=== PATIENT | female | born 1965 | race Caucasian/White ===

== ENCOUNTER 2017-11-26 19:07 | Emergency (ER) | payer BC ==
--- NOTE | 2017-11-26 21:02 | EDM.PDOC ---
ED HPI GENERAL MEDICAL PROBLEM - General Chief Complaint: Neuro Symptoms/Deficits Stated Complaint: NUMBNESS Time Seen by Provider: 11/26/17 20:41 Source of Information: Reports: Patient, Family History Limitations: Reports: No Limitations - History of Present Illness INITIAL COMMENTS - FREE TEXT/NARRATIVE: HISTORY AND PHYSICAL: History of present illness: 52-year-old female presenting to emergency department complaining of tingling sensation in extremities and generalized weakness with past medical history of rheumatoid arthritis, opioid dependence, fibromyalgia, and multiple back surgeries. As per patient she is presenting to the emergency department secondary to generalized tingling in her extremities. She also states for the past week she' s been dropping things more often and feels that is getting worse. She is not steady on her feet and is tired all the time as well as sleeping. She does admit to taking Flexeril recently as well as oxycodone. She does have a history of opioid dependence after treatment for her back surgeries. States that she took an oxycodone after she found it. Family is concerned that she has been taking more of the Flexeril and oxycodone recently and that is the cause of her symptoms. She and family deny any history of TIA/stroke, facial drooping, or other signs of stroke. Patient also admits to having hallucination and vivid dreams in which someone is trying to kill her. These have been increasing. Patient does see Dr. Pemberton as her primary care provider. She states that she has also had a sore throat but denies any fever, nausea, vomiting, diarrhea, or other signs of systemic infection. Currently denies any chest pain, palpitations , shortness of breath, or syncopal episodes. Patient is calm and quiet somewhat slow to answer questions. No other significant finding on exam. CBC unremarkable CMP revealed mild hyponatremia 1:30 as well as mild hypokalemia at 3.2. CT the head unremarkable as well as urinalysis and rapid strep. Review of systems: As per history of present illness and below otherwise all systems reviewed and negative. Past medical history: As per history of present illness and as reviewed below otherwise noncontributory. Surgical history: As per history of present illness and as reviewed below otherwise noncontributory. Social history: No reported history of drug or alcohol abuse. Family history: As per history of present illness and as reviewed below otherwise noncontributory. Physical exam: HEENT: Atraumatic, normocephalic, pupils reactive, negative for conjunctival pallor or scleral icterus, mucous membranes moist, throat clear, neck supple, nontender, trachea midline. Lungs: Clear to auscultation, breath sounds equal bilaterally, chest nontender. Heart: S1S2, regular, negative for clicks, rubs, or JVD. Abdomen: Soft, nondistended, nontender. Negative for masses or hepatosplenomegaly. Negative for costovertebral tenderness. Pelvis: Stable nontender. Genitourinary: Deferred. Rectal: Deferred. Extremities: Atraumatic, negative for cords or calf pain. Neurovascular unremarkable. Neuro: Awake, alert, oriented. Cranial nerves II through XII unremarkable. Cerebellum unremarkable. Motor and sensory unremarkable throughout. Exam nonfocal. Diagnostics: CBC, CMP, UA/UC, rapid strep, CT head, EKG Therapeutics: 1 L normal saline, 40 mEq KCl Impression: Drug-induced paresthesias and weakness Opioid dependence Hyponatremia Hypokalemia Plan: As above patient did have mild hyponatremia and hypokalemia. I did talk to Dr. Kemp, hospitalist, and discussed patient's symptoms. We both agreed that she may have some tingling but 2 weeks of continued lethargy most likely related to the mild hyponatremia. Secondary to patient's history most likely related to medication ingestion with Flexeril and opioid. Patient's urine was positive for opioids. Discussed this with patient and her . They're in understanding. Discharged in good condition with instructions to follow-up with Dr. Pemberton tomorrow. They should return to emergency department if any new or worsening symptoms. Definitive disposition and diagnosis as appropriate pending reevaluation and review of above. Throat Pain Score (Numeric/FACES): 9 - Related Data Allergies Allergy/AdvReac Type Severity Reaction Status Date / Time cyclobenzaprine Allergy Weakness Verified 11/26/17 19:48 Home Meds: Home Meds Diclofenac Sodium [Voltaren] 75 mg PO BIDM #15 tab.cr 02/11/14 [Rx] oxyCODONE HCl/Acetaminophen [oxyCODONE-Acetaminophen 5-325] 1 tab PO ASDIRECTED 02/11/14 [History] Acyclovir 800 mg PO DAILY PRN 11/26/17 [History] Calcium Carb & Citrate/Vit D3 [Calcium + D3 ER Tablet] 1 tab PO DAILY 11/26/17 [ History] Celecoxib [CeleBREX] 200 mg PO DAILY PRN 11/26/17 [History] Cholecalciferol (Vitamin D3) [Vitamin D3] 1 tab PO DAILY 11/26/17 [History] Dexlansoprazole [Dexilant] 60 mg PO DAILY 11/26/17 [History] Famotidine [Pepcid] 20 mg PO DAILY 11/26/17 [History] Fexofenadine [Mary] 180 mg PO DAILY 11/26/17 [History] Folic Acid 5 mg PO DAILY 11/26/17 [History] Hydroxychloroquine Sulfate [Plaquenil] 200 mg PO BID 11/26/17 [History] Losartan [Cozaar] 50 mg PO DAILY 11/26/17 [History] Methotrexate 8 tab PO WEEKLY 11/26/17 [History] Potassium Chloride [Klor-Con] 20 meq PO DAILY 11/26/17 [History] Pregabalin [Lyrica] 75 mg PO ACLUNCH 11/26/17 [History] Pregabalin [Lyrica] 75 mg PO WITHBREAKFAST 11/26/17 [History] Pregabalin [Lyrica] 150 mg PO BEDTIME 11/26/17 [History] Thiamine [Vitamin B-1] 100 mg PO DAILY 11/26/17 [History] Venlafaxine [Effexor XR] 1 tab PO BID 11/26/17 [History] ZOLMitriptan [Zomig] 5 mg PO DAILY PRN 11/26/17 [History] traZODone HCl [Trazodone HCl] 1 - 2 tab PO BEDTIME PRN 11/26/17 [History] Past Medical History Cardiovascular History: Reports: Hypertension Musculoskeletal History: Reports: RA Neurological History: Reports: Migraines Psychiatric History: Reports: Depression Social & Family History - Family History Family Medical History: Noncontributory - Tobacco Use Smoking Status *Q: Current Every Day Smoker Years of Tobacco use: 32 Packs/Tins Daily: 1 - Recreational Drug Use Recreational Drug Use: Yes Recreational Drug Type: Reports: Marijuana/Hashish ED ROS GENERAL - Review of Systems Review Of Systems: ROS reveals no pertinent complaints other than HPI. ED EXAM, GENERAL - Physical Exam Exam: See Below Course - Vital Signs Last Recorded V/S: Last Vital Signs Temp 98.6 F 11/26/17 22:52 Pulse 70 11/26/17 22:52 Resp 15 11/26/17 22:52 BP 120/69 11/26/17 22:52 Pulse Ox 96 11/26/17 22:52 - Orders/Labs/Meds Orders: Active Orders 24 hr Category Date Time Status EKG Documentation Completion [RC] STAT Care 11/26/17 21:36 Active Head wo Cont [CT] Stat Exams 11/26/17 20:54 Taken CULTURE STREP A CONFIRMATION [RM] Stat Lab 11/26/17 21:49 Results CULTURE URINE [] Stat Lab 11/26/17 20:20 Received STREP SCRN A RAPID W CULT CONF [] Stat Lab 11/26/17 21:49 Results Labs: Laboratory Tests 11/26/17 11/26/17 11/26/17 Range/Units 08:26 08:26 20:20 WBC 6.37 (4.0-11.0) K/uL RBC 3.51 L (4.30-5.90) M/uL Hgb 11.2 L (12.0-16.0) g/dL Hct 32.0 L (36.0-46.0) % MCV 91.2 (80.0-98.0) fL MCH 31.9 (27.0-32.0) pg MCHC 35.0 (31.0-37.0) g/dL RDW Std Deviation 46.0 (28.0-62.0) fl RDW Coeff of Michelle 14 (11.0-15.0) % Plt Count 300 (150-400) K/uL MPV 10.70 (7.40-12.00) fL Neut % (Auto) 76.5 (48.0-80.0) % Lymph % (Auto) 21.4 (16.0-40.0) % Dorado % (Auto) 0.3 (0.0-15.0) % Eos % (Auto) 1.6 (0.0-7.0) % Baso % (Auto) 0.2 (0.0-1.5) % Neut # (Auto) 4.9 (1.4-5.7) K/uL Lymph # (Auto) 1.4 (0.6-2.4) K/uL Dorado # (Auto) 0.0 (0.0-0.8) K/uL Eos # (Auto) 0.1 (0.0-0.7) K/uL Baso # (Auto) 0.0 (0.0-0.1) K/uL Nucleated RBC % 0.0 /100WBC Nucleated RBCs # 0 K/uL Sodium 130 L (136-145) mmol/L Potassium 3.2 L (3.5-5.1) mmol/L Chloride 92 L (98-107) mmol/L Carbon Dioxide 21.1 (21.0-32.0) mmol/L BUN 94 H (7.0-18.0) mg/dL Creatinine 6.2 H (0.6-1.0) mg/dL Est Cr Clr Drug Dosing 9.33 mL/min Estimated GFR (MDRD) 7.0 ml/min Glucose 100 (74-106) mg/dL Calcium 8.6 (8.5-10.1) mg/dL Total Bilirubin 0.3 (0.2-1.0) mg/dL AST 42 H (15-37) IU/L ALT 24 (14-63) IU/L Alkaline Phosphatase 126 H (46-116) U/L Total Protein 7.8 (6.4-8.2) g/dL Albumin 3.8 (3.4-5.0) g/dL Globulin 4.0 H (2.0-3.5) g/dL Albumin/Globulin Ratio 1.0 L (1.3-2.8) Urine Color YELLOW Urine Appearance CLEAR Urine pH 5.5 (5.0-8.0) Ur Specific Makanda 1.015 (1.001-1.035) Urine Protein NEGATIVE (NEGATIVE) mg/dL Urine Glucose (UA) NEGATIVE (NEGATIVE) mg/dL Urine Ketones NEGATIVE (NEGATIVE) mg/dL Urine Occult Blood NEGATIVE (NEGATIVE) Urine Nitrite NEGATIVE (NEGATIVE) Urine Bilirubin NEGATIVE (NEGATIVE) Urine Urobilinogen 0.2 (<2.0) EU/dL Ur Leukocyte Esterase NEGATIVE (NEGATIVE) Urine RBC 0-1 (0-2/HPF) Urine WBC 0-2 (0-5/HPF) Ur Epithelial Cells MODERATE (NONE-FEW) Urine Bacteria RARE (NEGATIVE) Urine Opiates Screen (NEGATIVE) Ur Oxycodone Screen (NEGATIVE) Urine Methadone Screen (NEGATIVE) Ur Barbiturates Screen (NEGATIVE) Ur Phencyclidine Scrn (NEGATIVE) Ur Amphetamine Screen (NEGATIVE) U Methamphetamines Scrn (NEGATIVE) U Benzodiazepines Scrn (NEGATIVE) U Cocaine Metab Screen (NEGATIVE) U Marijuana (THC) Screen (NEGATIVE) 11/26/17 Range/Units 20:20 WBC (4.0-11.0) K/uL RBC (4.30-5.90) M/uL Hgb (12.0-16.0) g/dL Hct (36.0-46.0) % MCV (80.0-98.0) fL MCH (27.0-32.0) pg MCHC (31.0-37.0) g/dL RDW Std Deviation (28.0-62.0) fl RDW Coeff of Michelle (11.0-15.0) % Plt Count (150-400) K/uL MPV (7.40-12.00) fL Neut % (Auto) (48.0-80.0) % Lymph % (Auto) (16.0-40.0) % Dorado % (Auto) (0.0-15.0) % Eos % (Auto) (0.0-7.0) % Baso % (Auto) (0.0-1.5) % Neut # (Auto) (1.4-5.7) K/uL Lymph # (Auto) (0.6-2.4) K/uL Dorado # (Auto) (0.0-0.8) K/uL Eos # (Auto) (0.0-0.7) K/uL Baso # (Auto) (0.0-0.1) K/uL Nucleated RBC % /100WBC Nucleated RBCs # K/uL Sodium (136-145) mmol/L Potassium (3.5-5.1) mmol/L Chloride (98-107) mmol/L Carbon Dioxide (21.0-32.0) mmol/L BUN (7.0-18.0) mg/dL Creatinine (0.6-1.0) mg/dL Est Cr Clr Drug Dosing mL/min Estimated GFR (MDRD) ml/min Glucose (74-106) mg/dL Calcium (8.5-10.1) mg/dL Total Bilirubin (0.2-1.0) mg/dL AST (15-37) IU/L ALT (14-63) IU/L Alkaline Phosphatase (46-116) U/L Total Protein (6.4-8.2) g/dL Albumin (3.4-5.0) g/dL Globulin (2.0-3.5) g/dL Albumin/Globulin Ratio (1.3-2.8) Urine Color Urine Appearance Urine pH (5.0-8.0) Ur Specific Makanda (1.001-1.035) Urine Protein (NEGATIVE) mg/dL Urine Glucose (UA) (NEGATIVE) mg/dL Urine Ketones (NEGATIVE) mg/dL Urine Occult Blood (NEGATIVE) Urine Nitrite (NEGATIVE) Urine Bilirubin (NEGATIVE) Urine Urobilinogen (<2.0) EU/dL Ur Leukocyte Esterase (NEGATIVE) Urine RBC (0-2/HPF) Urine WBC (0-5/HPF) Ur Epithelial Cells (NONE-FEW) Urine Bacteria (NEGATIVE) Urine Opiates Screen POSITIVE (NEGATIVE) Ur Oxycodone Screen POSITIVE (NEGATIVE) Urine Methadone Screen NEGATIVE (NEGATIVE) Ur Barbiturates Screen NEGATIVE (NEGATIVE) Ur Phencyclidine Scrn NEGATIVE (NEGATIVE) Ur Amphetamine Screen NEGATIVE (NEGATIVE) U Methamphetamines Scrn NEGATIVE (NEGATIVE) U Benzodiazepines Scrn NEGATIVE (NEGATIVE) U Cocaine Metab Screen NEGATIVE (NEGATIVE) U Marijuana (THC) Screen NEGATIVE (NEGATIVE) Meds: Medications Discontinued Medications Generic Name Dose Route Start Last Admin Trade Name Freq PRN Reason Stop Dose Admin Sodium Chloride 1,000 mls @ 999 mls/hr 11/26/17 21:37 11/26/17 21:47 Normal Saline IV 11/26/17 22:37 999 mls/hr STAT ONE Administration Potassium Chloride 40 meq 11/26/17 21:37 11/26/17 21:47 Klor-Con M20 PO 11/26/17 21:38 40 meq ONETIME ONE Administration Departure - Departure Time of Disposition: 23:11 Disposition: Home, Self-Care 01 Condition: Good Clinical Impression: Hyponatremia, Hypokalemia, Lethargy, Acute hypoactive opioid intoxication delirium - Discharge Information Referrals: Chris Pemberton MD [Primary Care Provider] - Forms: ED Department Discharge Additional Instructions: My general discharge The following information is given to patients seen in the emergency department who are being discharged to home. This information is to outline your options for follow-up care. We provide all patients seen in our emergency department with a follow-up referral. The need for follow-up, as well as the timing and circumstances, are variable depending upon the specifics of your emergency department visit. If you don't have a primary care physician on staff, we will provide you with a referral. We always advise you to contact your personal physician following an emergency department visit to inform them of the circumstance of the visit and for follow-up with them and/or the need for any referrals to a consulting specialist. The emergency department will also refer you to a specialist when appropriate. This referral assures that you have the opportunity for follow-up care with a specialist. All of these measure are taken in an effort to provide you with optimal care, which includes your follow-up. Under all circumstances we always encourage you to contact your private physician who remains a resource for coordinating your care. When calling for follow-up care, please make the office aware that this follow-up is from your recent emergency room visit. If for any reason you are refused follow-up, please contact the [facility] Emergency Department at and asked to speak to the emergency department charge nurse. [address] [address] Please follow-up with Dr. Pemberton as we discussed. Be sure to call his office tomorrow and let them know that you were seen in the emergency department and they wish for you to be seen as possible. Refrain from any muscle relaxer or opioids. Return to emergency department if any new or worsening symptoms. - My Orders Last 24 Hours: My Active Orders 11/26/17 20:20 CULTURE URINE [RM] Stat 11/26/17 20:54 Head wo Cont [CT] Stat 11/26/17 21:36 EKG Documentation Completion [RC] STAT 11/26/17 21:49 CULTURE STREP A CONFIRMATION [RM] Stat STREP SCRN A RAPID W CULT CONF [RM] Stat - Assessment/Plan Last 24 Hours: My Active Orders 11/26/17 20:20 CULTURE URINE [RM] Stat 11/26/17 20:54 Head wo Cont [CT] Stat 11/26/17 21:36 EKG Documentation Completion [RC] STAT 11/26/17 21:49 CULTURE STREP A CONFIRMATION [RM] Stat STREP SCRN A RAPID W CULT CONF [RM] Stat
[2017-11-26] MEDS ORDERED: Sodium Chloride 0.9% 1,000 ML IV ONE (21:37)
[2017-11-26] MEDS ORDERED: Potassium Chloride 20 MEQ Tab.ER PO ONE (21:37)
--- NOTE | 2017-11-27 09:39 | CT ---
EXAM DATE: 11/26/17 PATIENT'S AGE: 52 Patient: [place] MEHTA Facility: [place], [place] Site . Site : [id number] Study: CT Head [id number] 9:21:51 PM Ordering Physician: Geoffrey Damico Final Report: INDICATION: Pain with neurological deficits TECHNIQUE: CT head without contrast. COMPARISON: None FINDINGS: CSF spaces: Within normal limits for age. Brain parenchyma: The elam-white differentiation is normal. No sign of mass, hemorrhage, or midline shift. Skull base and calvarium: The visualized paranasal sinuses and mastoid air cells demonstrate no acute or significant findings. The visualized orbits are grossly unremarkable. No skull fractures. IMPRESSION: Unremarkable noncontrast head CT. Dictated by Harman Sanchez MD @ 11/26/2017 9:33:07 PM Please note that all CT scans at this facility use dose modulation, iterative reconstruction, and/or weight-based dosing when appropriate to reduce radiation dose to as low as reasonably achievable. Dictated by: Harman Sanchez MD @ 11/26/2017 21:33:13 (Electronic Signature) Report Signed by Proxy. [facility] [email or web address]
== END 2017-11-26 23:22 | disposition home or self-care (01) ==
LOC: MW.ED 19:07
DX: R20.2 Paresthesia of skin (principal); T40.2X5A Adverse effect of other opioids, initial encounter; F11.221 Opioid dependence with intoxication delirium; E87.1 Hypo-osmolality and hyponatremia; E87.6 Hypokalemia; R53.83 Other fatigue; I10 Essential (primary) hypertension; F32.9 Major depressive disorder, single episode, unspecified; F17.210 Nicotine dependence, cigarettes, uncomplicated; Z79.899 Other long term (current) drug therapy; Z88.8 Allergy status to other drugs, medicaments and biological substances
CPT/HCPCS: 36415; 70450; 80053; 80305; 81001; 85025; 87081; 87086; 87880; 93005; 96360; 99285; A9270; J7040; 99283

== ENCOUNTER 2020-05-11 09:04 | Emergency (ER) | payer BC ==
[2020-05-11] MEDS ORDERED: Sodium Chloride 0.9% 1,000 ML IV ONE (09:15)
[2020-05-11] MEDS ORDERED: Morphine 4 MG/ML Syringe IVPUSH ONE (09:15)
--- NOTE | 2020-05-11 09:20 | EDM.PDOC ---
ED HPI GENERAL MEDICAL PROBLEM - General Chief Complaint: Gastrointestinal Problem Stated Complaint: EMS Time Seen by Provider: 05/11/20 09:15 Source of Information: Reports: Patient History Limitations: Reports: No Limitations, Uncooperative - History of Present Illness INITIAL COMMENTS - FREE TEXT/NARRATIVE: Patient is a 54-year-old female who was brought in by EMS for vomiting and abdominal pain. Patient is unsure when this started but states that since this morning she has been having profuse vomiting has some pain in epigastric area. Patient does not remember any events such as eating new foods or travels the cause of symptoms. Patient has some antibiotics in her medication bag but states she is not sure if she was taken any medications for antibiotics. Patient denies any fever chills headaches or other complaints. abd Pain Score (Numeric/FACES): 10 - Related Data Allergies Allergy/AdvReac Type Severity Reaction Status Date / Time cyclobenzaprine Allergy Weakness Verified 11/26/17 19:48 Home Meds: Home Meds Diclofenac Sodium [Voltaren] 75 mg PO BIDM #15 tab.cr 02/11/14 [Rx] oxyCODONE HCl/Acetaminophen [oxyCODONE-Acetaminophen 5-325] 1 tab PO ASDIRECTED 02/11/14 [History] Acyclovir 800 mg PO DAILY PRN 11/26/17 [History] Calcium Carb, Citrate/Vit D3 [Calcium + D3 ER Tablet] 1 tab PO DAILY 11/26/17 [History] Celecoxib [CeleBREX] 200 mg PO DAILY PRN 11/26/17 [History] Cholecalciferol (Vitamin D3) [Vitamin D3] 1 tab PO DAILY 11/26/17 [History] Dexlansoprazole [Dexilant] 60 mg PO DAILY 11/26/17 [History] Famotidine [Pepcid] 20 mg PO DAILY 11/26/17 [History] Fexofenadine [Mary] 180 mg PO DAILY 11/26/17 [History] Folic Acid 5 mg PO DAILY 11/26/17 [History] Hydroxychloroquine Sulfate [Plaquenil] 200 mg PO BID 11/26/17 [History] Losartan [Cozaar] 50 mg PO DAILY 11/26/17 [History] Methotrexate 8 tab PO WEEKLY 11/26/17 [History] Potassium Chloride [Klor-Con] 20 meq PO DAILY 11/26/17 [History] Pregabalin [Lyrica] 75 mg PO ACLUNCH 11/26/17 [History] Pregabalin [Lyrica] 75 mg PO WITHBREAKFAST 11/26/17 [History] Pregabalin [Lyrica] 150 mg PO BEDTIME 11/26/17 [History] Thiamine [Vitamin B-1] 100 mg PO DAILY 11/26/17 [History] Venlafaxine [Effexor XR] 1 tab PO BID 11/26/17 [History] ZOLMitriptan [Zomig] 5 mg PO DAILY PRN 11/26/17 [History] traZODone HCl [Trazodone HCl] 1 - 2 tab PO BEDTIME PRN 11/26/17 [History] Ondansetron [Zofran ODT] 4 mg PO Q6H PRN 5 Days #20 tab.dis 05/11/20 [Rx] Past Medical History Cardiovascular History: Reports: Hypertension Musculoskeletal History: Reports: RA Neurological History: Reports: Migraines Psychiatric History: Reports: Depression Social & Family History - Family History Family Medical History: No Pertinent Family History ED ROS GENERAL - Review of Systems Review Of Systems: See Below Constitutional: Reports: No Symptoms HEENT: Reports: No Symptoms Respiratory: Reports: No Symptoms Cardiovascular: Reports: No Symptoms Endocrine: Reports: No Symptoms GI/Abdominal: Reports: Abdominal Pain, Vomiting : Reports: No Symptoms Musculoskeletal: Reports: No Symptoms Skin: Reports: No Symptoms Neurological: Reports: No Symptoms Psychiatric: Reports: No Symptoms Hematologic/Lymphatic: Reports: No Symptoms Immunologic: Reports: No Symptoms ED EXAM, GI/ABD - Physical Exam Exam: See Below Exam Limited By: No Limitations General Appearance: Alert Respiratory/Chest: No Respiratory Distress, Lungs Clear Cardiovascular: Normal Peripheral Pulses, Regular Rate, Rhythm GI/Abdominal Exam: Normal Bowel Sounds, Soft, Non-Tender Extremities: Normal Inspection, Normal Range of Motion Neurological: Alert, Oriented, Normal Cognition, Normal Gait #1 Interpretation EKG Date: 05/11/20 Time: 09:05 Rhythm: NSR Rate (Beats/Min): 59 ST-T: Normal Course - Vital Signs Last Recorded V/S: Last Vital Signs Temp 95.0 F L 05/11/20 09:04 Pulse 78 05/11/20 13:30 Resp 18 05/11/20 13:30 BP 116/98 H 05/11/20 13:30 Pulse Ox 97 05/11/20 13:30 - Orders/Labs/Meds Orders: Active Orders 24 hr Category Date Time Status C DIFFICILE AG/TOXIN W/REFLEX [RM] Stat Lab 05/11/20 12:22 Ordered UA W/SENDY RFLX IF INDICATED [URIN] Stat Lab 05/11/20 09:16 Ordered Labs: Laboratory Tests 05/11/20 05/11/20 05/11/20 Range/Units 09:24 09:24 09:24 WBC 10.94 (4.0-11.0) K/uL RBC 3.95 L (4.30-5.90) M/uL Hgb 13.1 (12.0-16.0) g/dL Hct 37.9 (36.0-46.0) % MCV 95.9 (80.0-98.0) fL MCH 33.2 H (27.0-32.0) pg MCHC 34.6 (31.0-37.0) g/dL RDW Std Deviation 47.4 (28.0-62.0) fl RDW Coeff of Michelle 14 (11.0-15.0) % Plt Count 368 (150-400) K/uL MPV 10.80 (7.40-12.00) fL Neut % (Auto) 69.9 (48.0-80.0) % Lymph % (Auto) 24.6 (16.0-40.0) % [place] % (Auto) 4.8 (0.0-15.0) % Eos % (Auto) 0.5 (0.0-7.0) % Baso % (Auto) 0.2 (0.0-1.5) % Neut # (Auto) 7.7 H (1.4-5.7) K/uL Lymph # (Auto) 2.7 H (0.6-2.4) K/uL [place] # (Auto) 0.5 (0.0-0.8) K/uL Eos # (Auto) 0.1 (0.0-0.7) K/uL Baso # (Auto) 0.0 (0.0-0.1) K/uL Nucleated RBC % 0.0 /100WBC Nucleated RBCs # 0 K/uL Lactate 2.1 H* (0.20-2.00) mmol/L Sodium 141 (136-145) mmol/L Potassium 3.1 L (3.5-5.1) mmol/L Chloride 104 (98-107) mmol/L Carbon Dioxide 21.3 (21.0-32.0) mmol/L BUN 23 H (7.0-18.0) mg/dL Creatinine 0.9 (0.6-1.0) mg/dL Est Cr Clr Drug Dosing TNP Estimated GFR (MDRD) > 60.0 ml/min Glucose 171 H (74-106) mg/dL Calcium 9.5 (8.5-10.1) mg/dL Phosphorus 0.9 L (2.6-4.7) mg/dL Magnesium 1.9 (1.8-2.4) mg/dL Total Bilirubin 0.4 (0.2-1.0) mg/dL AST 25 (15-37) IU/L ALT 21 (14-63) IU/L Alkaline Phosphatase 99 (46-116) U/L Creatine Kinase 100 (26-308) U/L Troponin I < 0.050 (0.000-0.056) ng/mL Total Protein 8.0 (6.4-8.2) g/dL Albumin 3.6 (3.4-5.0) g/dL Globulin 4.4 H (2.6-4.0) g/dL Albumin/Globulin Ratio 0.8 L (0.9-1.6) Lipase 128 (73-393) U/L Ethyl Alcohol <3 mg/dL 05/11/20 Range/Units 13:40 WBC (4.0-11.0) K/uL RBC (4.30-5.90) M/uL Hgb (12.0-16.0) g/dL Hct (36.0-46.0) % MCV (80.0-98.0) fL MCH (27.0-32.0) pg MCHC (31.0-37.0) g/dL RDW Std Deviation (28.0-62.0) fl RDW Coeff of Michelle (11.0-15.0) % Plt Count (150-400) K/uL MPV (7.40-12.00) fL Neut % (Auto) (48.0-80.0) % Lymph % (Auto) (16.0-40.0) % [place] % (Auto) (0.0-15.0) % Eos % (Auto) (0.0-7.0) % Baso % (Auto) (0.0-1.5) % Neut # (Auto) (1.4-5.7) K/uL Lymph # (Auto) (0.6-2.4) K/uL [place] # (Auto) (0.0-0.8) K/uL Eos # (Auto) (0.0-0.7) K/uL Baso # (Auto) (0.0-0.1) K/uL Nucleated RBC % /100WBC Nucleated RBCs # K/uL Lactate 1.1 (0.20-2.00) mmol/L Sodium (136-145) mmol/L Potassium (3.5-5.1) mmol/L Chloride (98-107) mmol/L Carbon Dioxide (21.0-32.0) mmol/L BUN (7.0-18.0) mg/dL Creatinine (0.6-1.0) mg/dL Est Cr Clr Drug Dosing Estimated GFR (MDRD) ml/min Glucose (74-106) mg/dL Calcium (8.5-10.1) mg/dL Phosphorus (2.6-4.7) mg/dL Magnesium (1.8-2.4) mg/dL Total Bilirubin (0.2-1.0) mg/dL AST (15-37) IU/L ALT (14-63) IU/L Alkaline Phosphatase (46-116) U/L Creatine Kinase (26-308) U/L Troponin I (0.000-0.056) ng/mL Total Protein (6.4-8.2) g/dL Albumin (3.4-5.0) g/dL Globulin (2.6-4.0) g/dL Albumin/Globulin Ratio (0.9-1.6) Lipase (73-393) U/L Ethyl Alcohol mg/dL Meds: Medications Discontinued Medications Generic Name Dose Route Start Last Admin Trade Name Freq PRN Reason Stop Dose Admin Diphenhydramine HCl 25 mg 05/11/20 12:43 05/11/20 13:26 Diphenhydramine 50 Mg/Ml Sdv IVPUSH 05/11/20 12:44 25 mg ONETIME ONE Administration Sodium Chloride 1,000 mls @ 999 mls/hr 05/11/20 09:15 05/11/20 09:39 Normal Saline IV 05/11/20 10:15 999 mls/hr .BOLUS ONE Administration Iopamidol 100 ml 05/11/20 11:19 05/11/20 11:20 Iopamidol 755 Mg/Ml 500 Ml Multipack Bottle IVPUSH 05/11/20 11:20 100 ml ONETIME STA Administration Metoclopramide HCl 10 mg 05/11/20 12:43 05/11/20 13:26 Metoclopramide 10 Mg/2 Ml Sdv IVPUSH 05/11/20 12:44 10 mg ONETIME ONE Administration Morphine Sulfate 4 mg 05/11/20 09:15 05/11/20 09:39 Morphine 4 Mg/Ml Syringe IVPUSH 05/11/20 09:16 4 mg ONETIME ONE Administration Promethazine HCl 25 mg 05/11/20 09:32 05/11/20 09:39 Promethazine 25 Mg/Ml Sdv IM 05/11/20 09:33 25 mg ONETIME ONE Administration - Re-Assessments/Exams Free Text/Narrative Re-Assessment/Exam: 05/11/20 14:[address] scan review no findings explain Patient is vomiting diarrhea. We will send a stool sample for patient and discharged with antiemetics. Departure - Departure Time of Disposition: 14:02 Disposition: Home, Self-Care 01 Condition: Good Clinical Impression: Vomiting - Discharge Information *PRESCRIPTION DRUG MONITORING PROGRAM REVIEWED*: Not Applicable *COPY OF PRESCRIPTION DRUG MONITORING REPORT IN PATIENT SANTIAGO: Not Applicable Prescriptions: Ondansetron [Zofran ODT] 4 mg PO Q6H PRN 5 Days #20 tab.dis PRN Reason: Vomiting Instructions: Viral Gastroenteritis, Adult, [id number] Referrals: PCP,None [Primary Care Provider] - Forms: ED Department Discharge Additional Instructions: The following information is given to patients seen in the emergency department who are being discharged to home. This information is to outline your options for follow-up care. We provide all patients seen in our emergency department with a follow-up referral. The need for follow-up, as well as the timing and circumstances, are variable depending upon the specifics of your emergency department visit. If you don't have a primary care physician on staff, we will provide you with a referral. We always advise you to contact your personal physician following an emergency department visit to inform them of the circumstance of the visit and for follow-up with them and/or the need for any referrals to a consulting specialist. The emergency department will also refer you to a specialist when appropriate. This referral assures that you have the opportunity for follow-up care with a specialist. All of these measure are taken in an effort to provide you with optimal care, which includes your follow-up. Under all circumstances we always encourage you to contact your private physician who remains a resource for coordinating your care. When calling for follow-up care, please make the office aware that this follow-up is from your recent emergency room visit. If for any reason you are refused follow-up, please contact the [facility] Emergency Department at and asked to speak to the emergency department charge nurse. Please follow up with your primary care physician. If you do not have a primary care physician, see below: [facility] [address] [place] [id number] My [facility] [address] [place] [id number] Please follow-up to primary care physician. If you have any other concerning findings or symptoms please return to the ED. Sepsis Event Note (ED) - Focused Exam Vital Signs: Vital Signs Temp Pulse Resp BP Pulse Ox 05/11/20 13:30 78 18 116/98 H 97 05/11/20 09:04 95.0 F L 57 L 25 H 151/94 H 98 - My Orders Last 24 Hours: My Active Orders 05/11/20 09:16 UA W/SENDY RFLX IF INDICATED [URIN] Stat 05/11/20 12:22 C DIFFICILE AG/TOXIN W/REFLEX [RM] Stat - Assessment/Plan Last 24 Hours: My Active Orders 05/11/20 09:16 UA W/SENDY RFLX IF INDICATED [URIN] Stat 05/11/20 12:22 C DIFFICILE AG/TOXIN W/REFLEX [RM] Stat Plan: Patient is a 54-year-old female who was brought in for nausea vomiting epigastric abdominal pain. Obtain labs CT scan give IV fluids and reassess.
[2020-05-11] MEDS ORDERED: Promethazine 25 MG/ML SDV IM ONE (09:32)
[2020-05-11 10:00] LABS: BLOOD UREA NITROGEN,BUN 23 mg/dL (7.0-18.0); CARBON DIOXIDE,CO2 21.3 mmol/L (21.0-32.0); CHLORIDE,CL 104 mmol/L (98-107); GLUCOSE RANDOM 171 mg/dL (74-106); LIPASE 128 U/L (73-393); POTASSIUM,K 3.1 mmol/L (3.5-5.1); SODIUM,NA 141 mmol/L (136-145)
[2020-05-11] MEDS ORDERED: Iopamidol 755 MG/ML 500 ML Multipack Bottle IVPUSH STA (11:19)
--- NOTE | 2020-05-11 11:52 | CT ---
Indication: Epigastric abdominal pain Technique: Volumetric multidetector CT images of the abdomen and pelvis were obtained after the administration of intravenous contrast. 100 cc Isovue 370 low osmolar intravenous contrast Comparison: None available. Findings: There is bibasilar atelectasis and parenchymal scarring with scattered ground-glass opacities. There is no dense consolidation. There are subcentimeter hypodensities within the liver too small to characterize. Cystic change of the left liver lobe is seen. There is mild intrahepatic biliary ductal dilatation. Otherwise the liver is preserved in attenuation and enhancement. The portal vein is patent. The gallbladder is unremarkable without evidence of radiopaque calculus. There is moderate reservoir dilatation of the common bile duct. The spleen is normal in enhancement and size. The stomach and duodenum are grossly unremarkable. The pancreas is normal in enhancement without significant atrophy. The adrenal glands are unremarkable. The kidneys demonstrate preserved corticomedullary differentiation without evidence of obstructive uropathy. There is a [id number] amount of stool seen throughout the colon with minimal colonic diverticulosis. There is no evidence of diverticulitis. The appendix is unremarkable. There is no significant mesenteric, retroperitoneal, or pelvic sidewall lymph nodes. The aorta is nonaneurysmal. There is no significant atherosclerotic disease appreciated. The solid pelvic viscera are grossly unremarkable. There is no free fluid or free air. Postoperative changes of the anterior abdominal wall are appreciated. The lumbar vertebral body heights are grossly maintained with pedicle screws and posterior stabilization fixators at the L4 through S1 levels. There is no evidence of displaced fracture. Impression: No evidence of acute intra-abdominal abnormality. Prior cholecystectomy with mild reservoir dilatation of the intrahepatic and common bile ducts. Minimal distal colonic diverticulosis without evidence of definite diverticulitis. Please note that all CT scans at this facility use dose modulation, iterative reconstruction, and/or weight-based dosing when appropriate to reduce radiation dose to as low as reasonably achievable. Dictated by Jaime Castañeda MD @ May 11 2020 11:40AM Signed by Dr. Jaime Castañeda @ May 11 2020 11:52AM
[2020-05-11] MEDS ORDERED: Metoclopramide 10 MG/2 ML SDV IVPUSH ONE (12:43)
[2020-05-11] MEDS ORDERED: diphenhydrAMINE 50 MG/ML SDV IVPUSH ONE (12:43)
== END 2020-05-11 14:26 | disposition home or self-care (01) ==
LOC: MW.ED 09:04
DX: R11.10 Vomiting, unspecified (principal); R10.13 Epigastric pain; I10 Essential (primary) hypertension; Z88.8 Allergy status to other drugs, medicaments and biological substances; Z79.899 Other long term (current) drug therapy
CPT/HCPCS: 36415; 74177; 80053; 80307; 82550; 83605; 83690; 83735; 84100; 84484; 85025; 93005; 96372; 96374; 96375; 99285; J1200; J2270; J2550; J2765; J7030; Q9967

== ENCOUNTER 2020-12-29 10:57 | Emergency (ER) | payer BC ==
--- NOTE | 2020-12-29 11:13 | EDM.PDOC ---
<Paramjit Phelan - Last Filed: 12/29/20 12:37> ED HPI GENERAL MEDICAL PROBLEM - General Chief Complaint: General Stated Complaint: NEASEA LIGHT HEADED Time Seen by Provider: 12/29/20 10:58 - History of Present Illness INITIAL COMMENTS - FREE TEXT/NARRATIVE: 55-year-old female presents to the ER via EMS for fever, chills, vomiting and diarrhea that started at 2 AM. Patient woke up around 2 AM and began ex periencing chills and vomiting. Patient states she cannot stop vomiting, nonbilious, nonbloody. Complains of generalized abdominal discomfort. Patient did not eat anything out of her normal diet. No recent travel. No recent antibiotic use. No sick contacts. Patient had a similar episode in April, and received IV fluids in the ER. As per EMS, temperature 97.9, tachycardic, blood glucose 145, telemetry tracing sinus rhythm. Patient is anxious and shaking. Patient smokes marijuana daily. Patient smokes half a pack of cigarettes per day. Denies alcohol use. Denies other drug use. abdomen Pain Score (Numeric/FACES): 6 - Related Data Allergies Allergy/AdvReac Type Severity Reaction Status Date / Time cyclobenzaprine Allergy Weakness Verified 12/29/20 11:15 Home Meds: Home Meds Calcium Carb, Citrate/Vit D3 [Calcium + D3 ER Tablet] 1 tab PO DAILY 11/26/17 [History] Cholecalciferol (Vitamin D3) [Vitamin D3] 1 tab PO DAILY 11/26/17 [History] Hydroxychloroquine Sulfate [Plaquenil] 200 mg PO BID 11/26/17 [History] Pregabalin [Lyrica] 75 mg PO BID 11/26/17 [History] Pregabalin [Lyrica] 150 mg PO BEDTIME 11/26/17 [History] RX: Acyclovir 800 mg PO DAILY PRN 11/26/17 [History] RX: Folic Acid 5 mg PO DAILY 11/26/17 [History] RX: Venlafaxine [Effexor XR] 1 tab PO BID 11/26/17 [History] RX: traZODone HCl [Trazodone HCl] 1 - 2 tab PO BEDTIME PRN 11/26/17 [History] RX: ARIPiprazole [Abilify] 10 mg PO DAILY 12/29/20 [History] RX: Losartan Potassium [Cozaar] 50 mg PO DAILY 12/29/20 [History] RX: amLODIPine [Norvasc] 5 mg PO DAILY 12/29/20 [History] RX: predniSONE [Mark] 1 dose PO ASDIRECTED 12/29/20 [History] Past Medical History Cardiovascular History: Reports: Hypertension Musculoskeletal History: Reports: RA Neurological History: Reports: Migraines Psychiatric History: Reports: Depression Social & Family History - Family History Family Medical History: No Pertinent Family History ED ROS GENERAL - Review of Systems Review Of Systems: See Below Constitutional: Reports: Fever, Chills. Denies: Diaphoresis HEENT: Denies: Dental Pain, Eye Pain, Vision Change Respiratory: Denies: Shortness of Breath, Wheezing, Pleuritic Chest Pain, Cough, Sputum Cardiovascular: Denies: Chest Pain, Dyspnea on Exertion, Edema, Lightheadedness, Palpitations Endocrine: Reports: Fatigue GI/Abdominal: Reports: Abdominal Pain, Diarrhea, Flatus, Nausea, Vomiting. Denies: Black Stool, Bloody Stool, Constipation, Distension, Hematemesis, Hematochezia, Melena, Stool Incontinence : Denies: Dysuria, Flank Pain Musculoskeletal: Denies: Leg Pain, Joint Pain, Joint Swelling Skin: Denies: Rash Neurological: Denies: Confusion, Dizziness, Headache, Numbness, Paresthesia, Seizure, Syncope Psychiatric: Reports: Anxiety ED EXAM, GENERAL - Physical Exam Exam: See Below General Appearance: Alert, Anxious, Moderate Distress Eye Exam: Bilateral Eye: EOMI, PERRL Nose: Normal Inspection Throat/Mouth: Normal Inspection, Normal Voice Head: Atraumatic, Normocephalic Neck: Normal Inspection, Supple Respiratory/Chest: No Respiratory Distress, Lungs Clear Cardiovascular: Normal Peripheral Pulses, Regular Rate, Rhythm GI/Abdominal: Soft, No Distention, Tender. No: Rigid, Rebound Extremities: Normal Inspection Neurological: Alert, Oriented Skin Exam: Warm, Dry Departure - Departure Disposition: Home, Self-Care 01 Clinical Impression: Opioid withdrawal - Discharge Information Instructions: Opioid Withdrawal Treatment Referrals: Chris Pemberton MD [Primary Care Provider] - Forms: ED Department Discharge Additional Instructions: Your labs are grossly unremarkable aside from mild low potassium which can happen in the setting of vomiting. Your symptoms are concerning for opioid withdrawal. You endorsed that you use opioids most days sometimes multiple times a day and have not used opiates in the last 2 to 3 days. Your urine drug screen was positive for oxycodone and opioids. I have sent 2 prescriptions to your pharmacy to help with opioid withdrawal symptoms. Unfortunately there is no good medical treatment for opioid withdrawal to completely remove symptoms so you are likely to experience symptoms for the next week to 10 days of nausea, vomiting, diarrhea. The following information is given to patients seen in the emergency department who are being discharged to home. This information is to outline your options for follow-up care. We provide all patients seen in our emergency department with a follow-up referral. The need for follow-up, as well as the timing and circumstances, are variable depending upon the specifics of your emergency department visit. If you don't have a primary care physician on staff, we will provide you with a referral. We always advise you to contact your personal physician following an emergency department visit to inform them of the circumstance of the visit and for follow-up with them and/or the need for any referrals to a consulting specialist. The emergency department will also refer you to a specialist when appropriate. This referral assures that you have the opportunity for follow-up care with a specialist. All of these measure are taken in an effort to provide you with optimal care, which includes your follow-up. Under all circumstances we always encourage you to contact your private physician who remains a resource for coordinating your care. When calling for follow-up care, please make the office aware that this follow-up is from your recent emergency room visit. If for any reason you are refused follow-up, please contact the [facility] Emergency Department at and asked to speak to the emergency department charge nurse. Please follow up with your primary care physician. If you do not have a primary care physician, see below: [facility] [address] [place] [address] [phone] [facility] [address] [place], [place] [id number] [facility] - [facility] [address] [place] [address] - Problem List & Annotations (1) Vomiting SNOMED Code(s): 621920915 Code(s): R11.10 - VOMITING, UNSPECIFIED Status: Acute Current Visit: No - Problem List Review Problem List Initiated/Reviewed/Updated: Yes - Assessment/Plan Plan: 55-year-old female presenting with vomiting and chills, similar episode in April. Resolved with IV fluids. We will get a urine tox screen, urinalysis, CBC, CMP, magnesium, phosphate and Covid. 4 mg morphine. GI cocktail. WBC 11. Potassium 3.2, repleted. Patient reassessed, continues to have nausea. We will give Phenergan. Abdominal exam benign. Low suspicion for surgical pathology, will defer CT. <Ghassan Reyes - Last Filed: 12/29/20 13:24> Course - Vital Signs Last Recorded V/S: Last Vital Signs Temp 95.7 F L 12/29/20 11:15 Pulse 65 12/29/20 13:08 Resp 20 12/29/20 11:15 BP 151/79 H 12/29/20 13:08 Pulse Ox 94 L 12/29/20 13:08 - Orders/Labs/Meds Orders: Active Orders 24 hr Category Date Time Status Potassium Chloride Riders [KCL in Water 20 MEQ/50 ML] Med 12/29/20 12:33 Active 20 meq Premix Bag 1 bag IV ONETIME Sodium Chloride 0.9% [Normal Saline] 1,000 ml Med 12/29/20 12:48 Active IV STAT Medication Orders Potassium Chloride 20 meq/ (Premix) 50 mls @ 25 mls/hr IV ONETIME ONE Stop: 12/29/20 14:32 Last Admin: 12/29/20 12:58 Dose: 25 mls/hr Documented by: YISSEL Sodium Chloride (Normal Saline) 1,000 mls @ 100 mls/hr IV STAT STA Stop: 12/29/20 22:47 Last Admin: 12/29/20 12:59 Dose: 100 mls/hr Documented by: YISSEL Labs: Laboratory Tests 12/29/20 12/29/20 12/29/20 Range/Units 11:35 11:35 11:36 WBC 11.27 H (4.0-11.0) K/uL RBC 4.09 L (4.30-5.90) M/uL Hgb 13.3 (12.0-16.0) g/dL Hct 38.2 (36.0-46.0) % MCV 93.4 (80.0-98.0) fL MCH 32.5 H (27.0-32.0) pg MCHC 34.8 (31.0-37.0) g/dL RDW Std Deviation 45.9 (28.0-62.0) fl RDW Coeff of Michelle 13 (11.0-15.0) % Plt Count 307 (150-400) K/uL MPV 10.70 (7.40-12.00) fL Neut % (Auto) 79.3 (48.0-80.0) % Lymph % (Auto) 15.6 L (16.0-40.0) % [place] % (Auto) 4.8 (0.0-15.0) % Eos % (Auto) 0.1 (0.0-7.0) % Baso % (Auto) 0.2 (0.0-1.5) % Neut # (Auto) 8.9 H (1.4-5.7) K/uL Lymph # (Auto) 1.8 (0.6-2.4) K/uL [place] # (Auto) 0.5 (0.0-0.8) K/uL Eos # (Auto) 0.0 (0.0-0.7) K/uL Baso # (Auto) 0.0 (0.0-0.1) K/uL Nucleated RBC % 0.0 /100WBC Nucleated RBCs # 0 K/uL Sodium 140 (136-145) mmol/L Potassium 3.2 L (3.5-5.1) mmol/L Chloride 103 (98-107) mmol/L Carbon Dioxide 20.7 L (21.0-32.0) mmol/L BUN 28 H (7.0-18.0) mg/dL Creatinine 0.9 (0.6-1.0) mg/dL Est Cr Clr Drug Dosing 62.06 mL/min Estimated GFR (MDRD) > 60.0 ml/min Glucose 174 H (74-106) mg/dL Calcium 9.0 (8.5-10.1) mg/dL Phosphorus 1.1 L (2.6-4.7) mg/dL Magnesium 1.9 (1.8-2.4) mg/dL Total Bilirubin 0.5 (0.2-1.0) mg/dL AST 23 (15-37) IU/L ALT 29 (14-63) IU/L Alkaline Phosphatase 93 (46-116) U/L Total Protein 7.7 (6.4-8.2) g/dL Albumin 4.0 (3.4-5.0) g/dL Globulin 3.7 (2.6-4.0) g/dL Albumin/Globulin Ratio 1.1 (0.9-1.6) Urine Color Urine Appearance Urine pH (5.0-8.0) Ur Specific [place] (1.001-1.035) Urine Protein (NEGATIVE) mg/dL Urine Glucose (UA) (NEGATIVE) mg/dL Urine Ketones (NEGATIVE) mg/dL Urine Occult Blood (NEGATIVE) Urine Nitrite (NEGATIVE) Urine Bilirubin (NEGATIVE) Urine Urobilinogen (<2.0) EU/dL Ur Leukocyte Esterase (NEGATIVE) Urine RBC (0-2/HPF) Urine WBC (0-5/HPF) Ur Epithelial Cells (NONE-FEW) Urine Bacteria (NEGATIVE) Urine Opiates Screen (NEGATIVE) Ur Oxycodone Screen (NEGATIVE) Urine Methadone Screen (NEGATIVE) Ur Barbiturates Screen (NEGATIVE) Ur Phencyclidine Scrn (NEGATIVE) Ur Amphetamine Screen (NEGATIVE) U Methamphetamines Scrn (NEGATIVE) U Benzodiazepines Scrn (NEGATIVE) U Cocaine Metab Screen (NEGATIVE) U Marijuana (THC) Screen (NEGATIVE) SARS-CoV-2 RNA ([place]) NEGATIVE (NEGATIVE) 12/29/20 12/29/20 Range/Units 12:22 12:22 WBC (4.0-11.0) K/uL RBC (4.30-5.90) M/uL Hgb (12.0-16.0) g/dL Hct (36.0-46.0) % MCV (80.0-98.0) fL MCH (27.0-32.0) pg MCHC (31.0-37.0) g/dL RDW Std Deviation (28.0-62.0) fl RDW Coeff of Michelle (11.0-15.0) % Plt Count (150-400) K/uL MPV (7.40-12.00) fL Neut % (Auto) (48.0-80.0) % Lymph % (Auto) (16.0-40.0) % [place] % (Auto) (0.0-15.0) % Eos % (Auto) (0.0-7.0) % Baso % (Auto) (0.0-1.5) % Neut # (Auto) (1.4-5.7) K/uL Lymph # (Auto) (0.6-2.4) K/uL [place] # (Auto) (0.0-0.8) K/uL Eos # (Auto) (0.0-0.7) K/uL Baso # (Auto) (0.0-0.1) K/uL Nucleated RBC % /100WBC Nucleated RBCs # K/uL Sodium (136-145) mmol/L Potassium (3.5-5.1) mmol/L Chloride (98-107) mmol/L Carbon Dioxide (21.0-32.0) mmol/L BUN (7.0-18.0) mg/dL Creatinine (0.6-1.0) mg/dL Est Cr Clr Drug Dosing mL/min Estimated GFR (MDRD) ml/min Glucose (74-106) mg/dL Calcium (8.5-10.1) mg/dL Phosphorus (2.6-4.7) mg/dL Magnesium (1.8-2.4) mg/dL Total Bilirubin (0.2-1.0) mg/dL AST (15-37) IU/L ALT (14-63) IU/L Alkaline Phosphatase (46-116) U/L Total Protein (6.4-8.2) g/dL Albumin (3.4-5.0) g/dL Globulin (2.6-4.0) g/dL Albumin/Globulin Ratio (0.9-1.6) Urine Color YELLOW Urine Appearance SLT CLOUDY Urine pH >= 9.0 H (5.0-8.0) Ur Specific [place] 1.015 (1.001-1.035) Urine Protein TRACE H (NEGATIVE) mg/dL Urine Glucose (UA) NEGATIVE (NEGATIVE) mg/dL Urine Ketones >=80 (NEGATIVE) mg/dL Urine Occult Blood NEGATIVE (NEGATIVE) Urine Nitrite NEGATIVE (NEGATIVE) Urine Bilirubin NEGATIVE (NEGATIVE) Urine Urobilinogen 0.2 (<2.0) EU/dL Ur Leukocyte Esterase NEGATIVE (NEGATIVE) Urine RBC NONE SEEN (0-2/HPF) Urine WBC 0-5 (0-5/HPF) Ur Epithelial Cells FEW (NONE-FEW) Urine Bacteria RARE (NEGATIVE) Urine Opiates Screen POSITIVE (NEGATIVE) Ur Oxycodone Screen POSITIVE (NEGATIVE) Urine Methadone Screen NEGATIVE (NEGATIVE) Ur Barbiturates Screen NEGATIVE (NEGATIVE) Ur Phencyclidine Scrn NEGATIVE (NEGATIVE) Ur Amphetamine Screen NEGATIVE (NEGATIVE) U Methamphetamines Scrn NEGATIVE (NEGATIVE) U Benzodiazepines Scrn NEGATIVE (NEGATIVE) U Cocaine Metab Screen NEGATIVE (NEGATIVE) U Marijuana (THC) Screen POSITIVE (NEGATIVE) SARS-CoV-2 RNA ([place]) (NEGATIVE) Meds: Medications Generic Name Dose Route Start Last Admin Trade Name Freq PRN Reason Stop Dose Admin Potassium Chloride 20 meq/ 50 mls @ 25 mls/hr 12/29/20 12:33 12/29/20 12:58 Premix IV 12/29/20 14:32 25 mls/hr ONETIME ONE Administration Sodium Chloride 1,000 mls @ 100 mls/hr 12/29/20 12:48 12/29/20 12:59 Normal Saline IV 12/29/20 22:47 100 mls/hr STAT STA Administration Discontinued Medications Generic Name Dose Route Start Last Admin Trade Name Freq PRN Reason Stop Dose Admin Clonidine HCl 0.1 mg 12/29/20 13:21 Clonidine 0.1 Mg Tab PO 12/29/20 13:22 ONETIME ONE Al Hydroxide/Mg Hydroxide 15 0 ml 12/29/20 11:18 12/29/20 11:35 ml/ Lidocaine HCl 5 ml PO 12/29/20 11:19 1 each ONETIME ONE Administration Lidocaine HCl Confirm 12/29/20 11:38 12/29/20 11:48 Lidocaine 2% Viscous Solution 15 Ml Cup Administered 12/29/20 11:39 Not Given Dose 15 ml .ROUTE .STK-MED ONE Morphine Sulfate 4 mg 12/29/20 11:17 12/29/20 11:33 Morphine 4 Mg/Ml Vial IVPUSH 12/29/20 11:18 4 mg ONETIME ONE Administration Ondansetron HCl 4 mg 12/29/20 11:23 12/29/20 11:32 Ondansetron 4 Mg/2 Ml Sdv IVPUSH 11/03/21 11:24 4 mg ONETIME ONE Administration Ondansetron HCl Confirm 12/29/20 11:23 12/29/20 11:48 Ondansetron 4 Mg/2 Ml Sdv Administered 12/29/20 11:24 Not Given Dose 4 mg .ROUTE .STK-MED ONE Promethazine HCl 25 mg 12/29/20 12:35 12/29/20 12:58 Promethazine 25 Mg/Ml Sdv IM 12/29/20 12:36 25 mg ONETIME ONE Administration - Re-Assessments/Exams Free Text/Narrative Re-Assessment/Exam: 12/29/20 13:00 Patient's UDS is positive for opioids, oxycodone, marijuana. Patient does endorse marijuana use. There is suspicion that symptoms are related to opioid withdrawal given history. I do have a low suspicion of acute intra-abdominal pathology given benign abdominal exam and only mild leukocytosis. 12/29/20 13:22 I did have a long discussion with patient regarding her positive UDS. Patient endorses using opioids most days, usually multiple times a day. She states that she has not used opioids in the last 2 to 3 days. I informed her that her symptoms are likely secondary to opioid withdrawal. Will give clonidine. Will discharge with a prescription for clonidine and Zofran for symptomatic control. Departure - Departure Time of Disposition: 13:22 Condition: Good Sepsis Event Note (ED) - Focused Exam Vital Signs: Vital Signs Temp Pulse Resp BP Pulse Ox 12/29/20 13:08 65 151/79 H 94 L 12/29/20 11:48 66 151/103 H 100 12/29/20 11:15 95.7 F L 63 20 146/92 H 100 - My Orders Last 24 Hours: My Active Orders 12/29/20 12:48 Sodium Chloride 0.9% [Normal Saline] 1,000 ml IV STAT - Assessment/Plan Last 24 Hours: My Active Orders 12/29/20 12:48 Sodium Chloride 0.9% [Normal Saline] 1,000 ml IV STAT
[2020-12-29] MEDS ORDERED: Morphine 4 MG/ML VIAL IVPUSH ONE (11:17)
[2020-12-29] MEDS ORDERED: Alum Hydrox/Mag Hydrox/Simeth 15 ML, Lidocaine 2% 5 ML PO ONE ×2 (11:18)
[2020-12-29] MEDS ORDERED: Aluminum Hydroxide/Magnesium Hydroxide/Simethicone XS Susp 30 ML Cup ONE (11:23)
[2020-12-29] MEDS ORDERED: Ondansetron 4 MG/2 ML SDV IVPUSH ONE (11:23)
[2020-12-29] MEDS ORDERED: Ondansetron 4 MG/2 ML SDV ONE (11:23)
[2020-12-29] MEDS ORDERED: Lidocaine 2% Viscous Solution 15 ML Cup ONE (11:38)
[2020-12-29 12:00] LABS: BLOOD UREA NITROGEN,BUN 28 mg/dL (7.0-18.0); CARBON DIOXIDE,CO2 20.7 mmol/L (21.0-32.0); CHLORIDE,CL 103 mmol/L (98-107); GLUCOSE RANDOM 174 mg/dL (74-106); POTASSIUM,K 3.2 mmol/L (3.5-5.1); SODIUM,NA 140 mmol/L (136-145)
[2020-12-29] MEDS ORDERED: Potassium Chloride Riders 20 MEQ in Premix Bag 1 BAG IV ONE (12:33)
[2020-12-29] MEDS ORDERED: Promethazine 25 MG/ML SDV IM ONE (12:35)
[2020-12-29] MEDS ORDERED: Sodium Chloride 0.9% 1,000 ML IV STA (12:48)
[2020-12-29] MEDS ORDERED: cloNIDine 0.1 MG Tab PO ONE (13:21)
== END 2020-12-29 15:55 | disposition home or self-care (01) ==
LOC: MW.ED 10:57
DX: F11.23 Opioid dependence with withdrawal (principal); R11.2 Nausea with vomiting, unspecified; I10 Essential (primary) hypertension; Z88.8 Allergy status to other drugs, medicaments and biological substances; Z79.899 Other long term (current) drug therapy; Z20.822 Contact with and (suspected) exposure to COVID-19
CPT/HCPCS: 36415; 80053; 80305; 81001; 83735; 84100; 85025; 87635; 96365; 96366; 96372; 96375; 99284; A9270; J2270; J2405; J2550; J3480; J7030; U0002

== ENCOUNTER 2023-05-07 02:15 | Emergency (ER) | payer BC ==
[2023-05-07 02:51] LABS: BASOPHILS ABSOLUTE AUTO 0.02 K/uL (0.00-0.20); BASOPHILS PERCENT AUTO 0.2 % (0.0-1.0); EOSINOPHILS ABSOLUTE AUTO 0.01 K/uL (0.00-0.45); EOSINOPHILS PERCENT AUTO 0.1 % (0.0-6.0); HEMATOCRIT 43.5 % (37.0-47.0); HEMOGLOBIN 15.7 g/dL (12.0-16.0); IMMATURE GRAN ABSOLUTE AUTO 0.03 K/uL (0.00-0.05); IMMATURE GRAN PERCENT AUTO 0.3 % (0.0-0.4); LYMPHOCYTES PERCENT AUTO 34.2 % (24.0-44.0); MEAN CORPUSCULAR HEMOGLOBIN 31.8 pg (28.0-32.0); MEAN CORPUSCULAR HGB CONC 36.1 g/dL (32.0-36.0); MEAN CORPUSCULAR VOLUME 88.2 fL (83.0-99.0); MEAN PLATELET VOLUME 10.2 fL (9.4-12.3); MONOCYTES ABSOLUTE AUTO 0.92 K/uL (0.00-0.80); MONOCYTES PERCENT AUTO 8.1 % (0.0-8.0); NEUTROPHILS ABSOLUTE AUTO 6.53 K/uL (1.80-7.70); NEUTROPHILS PERCENT AUTO 57.1 % (41.0-71.0); PLATELET COUNT,PLT 384 K/uL (150-400); RED BLOOD CELL COUNT 4.93 M/uL (4.10-5.30); WHITE BLOOD CELL COUNT,WBC 11.41 K/uL (3.9-11.3)
[2023-05-07] MEDS: Sodium Chloride 0.9% 2.5 ML Syringe FLUSH PRN (02:52)
[2023-05-07] MEDS: Sodium Chloride 0.9% 10 ML Syringe FLUSH PRN (02:52)
[2023-05-07] MEDS: Sodium Chloride 0.9% 1,000 ML IV ONE ×2 (02:52→04:10)
[2023-05-07] MEDS: Famotidine 20 MG/2 ML SDV IVPUSH ONE (02:52)
[2023-05-07] MEDS: Metoclopramide 10 MG/2 ML SDV IVPUSH ONE (02:52)
[2023-05-07] MEDS: diphenhydrAMINE 50 MG/ML SDV IVPUSH ONE (02:52)
[2023-05-07 03:34] LABS: A/G RATIO 1.1 (0.9-1.6); ALANINE AMINOTRANSFERASE,ALT 41 IU/L (14-63); ALBUMIN 4.8 g/dL (3.4-5.0); ALKALINE PHOSPHATASE 111 U/L (46-116); ASPARTATE AMNIOTRANSFERASE,AST 45 IU/L (15-37); BILIRUBIN TOTAL 1.3 mg/dL (0.2-1.0); BLOOD UREA NITROGEN,BUN 27 mg/dL (7.0-18.0); CHLORIDE,CL 93 mmol/L (98-107); CREATININE 2.1 mg/dL (0.6-1.0); ESTIMATED GFR 27 mL/min (>60); GLUCOSE RANDOM 128 mg/dL (74-106); LIPASE 166 U/L (16-77); MAGNESIUM 1.8 mg/dL (1.8-2.4); POTASSIUM,K 2.7 mmol/L (3.5-5.1); PROTEIN TOTAL,TP 9.2 g/dL (6.4-8.2); SODIUM,NA 139 mmol/L (136-145)
[2023-05-07] MEDS: Aspirin 81 MG Tab.Chew PO ONE (03:46)
[2023-05-07 03:55] LABS: CORONAVIRUS COVID-19 NAA NEGATIVE (NEGATIVE); INFLUENZA A NAA NEGATIVE (NEGATIVE); INFLUENZA B NAA NEGATIVE (NEGATIVE)
[2023-05-07] MEDS: Enoxaparin 100 MG/1 ML Syringe SUBCUT STA (04:02)
[2023-05-07] MEDS: droPERidol 5 MG/2 ML SDV IVPUSH ONE (04:03)
[2023-05-07] MEDS: Sodium Chloride 0.9% 1,000 ML IV SCH (04:10)
[2023-05-07] MEDS: Potassium Chloride 100 ML IV SCH (04:10)
[2023-05-07] MEDS: Magnesium Sulfate/Water 2 GM in Premix Bag 1 BAG IV ONE (04:56)
[2023-05-07] MEDS ORDERED: Naloxone 0.4 MG/ML SDV IVPUSH PRN (05:25)
[2023-05-07] MEDS: Morphine 2 MG/ML SYRINGE IVPUSH ONE (05:30)
== END 2023-05-07 06:50 | disposition other institution (70) ==
LOC: MW.ED 02:15
DX: I21.4 Non-ST elevation (NSTEMI) myocardial infarction (principal); N17.9 Acute kidney failure, unspecified; M62.82 Rhabdomyolysis; E87.6 Hypokalemia; I10 Essential (primary) hypertension; Z88.8 Allergy status to other drugs, medicaments and biological substances; Z79.899 Other long term (current) drug therapy; Z90.49 Acquired absence of other specified parts of digestive tract
CPT/HCPCS: 0240U; 36415; 80053; 82550; 83690; 83735; 84484; 85025; 93005; 96361; 96365; 96366; 96368; 96372; 96375; 99285; A9270; J1200; J1650; J1790; J2270; J2765; J3475; J3480; J3490; J7030; 93010

== ENCOUNTER 2023-06-10 08:14 | Emergency (ER) | payer BC ==
[2023-06-10 08:39] LABS: BASOPHILS ABSOLUTE AUTO 0.04 K/uL (0.00-0.20); BASOPHILS PERCENT AUTO 0.6 % (0.0-1.0); EOSINOPHILS ABSOLUTE AUTO 0.08 K/uL (0.00-0.45); EOSINOPHILS PERCENT AUTO 1.2 % (0.0-6.0); HEMATOCRIT 40.7 % (37.0-47.0); HEMOGLOBIN 14.5 g/dL (12.0-16.0); IMMATURE GRAN ABSOLUTE AUTO 0.01 K/uL (0.00-0.05); IMMATURE GRAN PERCENT AUTO 0.2 % (0.0-0.4); LYMPHOCYTES ABSOLUTE AUTO 2.83 K/uL (1.00-4.80); LYMPHOCYTES PERCENT AUTO 42.8 % (24.0-44.0); MEAN CORPUSCULAR HEMOGLOBIN 32.4 pg (28.0-32.0); MEAN CORPUSCULAR HGB CONC 35.6 g/dL (32.0-36.0); MEAN CORPUSCULAR VOLUME 90.8 fL (83.0-99.0); MEAN PLATELET VOLUME 11.3 fL (9.4-12.3); MONOCYTES ABSOLUTE AUTO 0.44 K/uL (0.00-0.80); MONOCYTES PERCENT AUTO 6.7 % (0.0-8.0); NEUTROPHILS ABSOLUTE AUTO 3.21 K/uL (1.80-7.70); NEUTROPHILS PERCENT AUTO 48.5 % (41.0-71.0); PLATELET COUNT,PLT 361 K/uL (150-400); RED BLOOD CELL COUNT 4.48 M/uL (4.10-5.30); WHITE BLOOD CELL COUNT,WBC 6.61 K/uL (3.9-11.3)
[2023-06-10 08:59] LABS: BILIRUBIN TOTAL 0.5 mg/dL (0.2-1.0); CALCIUM 9.7 mg/dL (8.5-10.1); CARBON DIOXIDE,CO2 19.7 mmol/L (21.0-32.0); CREATININE 1.3 mg/dL (0.6-1.0); EST CRCL DRUG DOSING (CG) 40.24 mL/min; POTASSIUM,K 3.7 mmol/L (3.5-5.1); PROTEIN TOTAL,TP 8.2 g/dL (6.4-8.2)
[2023-06-10] MEDS: Sodium Chloride 0.9% 1,000 ML IV ONE (09:05)
[2023-06-10] MEDS: HYDROmorphone 1 MG/ML Syringe IVPUSH ONE (09:06)
[2023-06-10] MEDS: Ondansetron 4 MG/2 ML SDV IVPUSH ONE (09:06)
[2023-06-10] MEDS: Sodium Chloride 0.9% 2.5 ML Syringe FLUSH PRN (09:07)
[2023-06-10] MEDS: Sodium Chloride 0.9% 10 ML Syringe FLUSH PRN (09:07)
[2023-06-10] MEDS: Iopamidol 755 Mg/ML 100 ML Bottle IVPUSH STA (11:12)
[2023-06-10 12:01] LABS: APPEARANCE,URINE CLEAR; BILIRUBIN,URINE NEGATIVE (NEGATIVE); COLOR,URINE YELLOW; GLUCOSE,URINE NEGATIVE (NEGATIVE); KETONES,URINE TRACE mg/dL (NEGATIVE); LEUKOCYTE ESTERASE,URINE NEGATIVE (NEGATIVE); NITRITE,URINE NEGATIVE (NEGATIVE); OCCULT BLOOD,URINE NEGATIVE (NEGATIVE); PH,URINE 8.5 (5.0-8.0); PROTEIN,URINE NEGATIVE (NEGATIVE); UROBILINOGEN,URINE 0.2 EU/dL (<2.0)
[2023-06-10] MEDS: fentaNYL 50 MCG/ML SDV IVPUSH ONE (12:34)
== END 2023-06-10 12:52 | disposition home or self-care (01) ==
LOC: MW.ED 08:14
DX: K57.32 Diverticulitis of large intestine without perforation or abscess without bleeding (principal); K52.9 Noninfective gastroenteritis and colitis, unspecified; K59.00 Constipation, unspecified; I10 Essential (primary) hypertension; Z79.899 Other long term (current) drug therapy; Z88.8 Allergy status to other drugs, medicaments and biological substances; Z90.49 Acquired absence of other specified parts of digestive tract; Z75.8 Other problems related to medical facilities and other health care
CPT/HCPCS: 36415; 74177; 80053; 81003; 83690; 85025; 96361; 96374; 96375; 99284; J1170; J2405; J3010; J3490; J7030; Q9967

== ENCOUNTER 2023-06-16 20:59 | Emergency (ER) | payer BC ==
[2023-06-16] MEDS: Ketorolac 30 MG/ML SDV IVPUSH ONE (21:40)
[2023-06-16] MEDS: Sodium Chloride 0.9% 1,000 ML IV ONE (21:40)
[2023-06-16] MEDS: Ondansetron 4 MG/2 ML SDV IVPUSH ONE (21:40)
[2023-06-16 21:51] LABS: BASOPHILS ABSOLUTE AUTO 0.03 K/uL (0.00-0.20); BASOPHILS PERCENT AUTO 0.2 % (0.0-1.0); HEMATOCRIT 38.6 % (37.0-47.0); HEMOGLOBIN 13.6 g/dL (12.0-16.0); IMMATURE GRAN ABSOLUTE AUTO 0.05 K/uL (0.00-0.05); IMMATURE GRAN PERCENT AUTO 0.4 % (0.0-0.4); LYMPHOCYTES ABSOLUTE AUTO 2.69 K/uL (1.00-4.80); LYMPHOCYTES PERCENT AUTO 21.6 % (24.0-44.0); MEAN CORPUSCULAR HEMOGLOBIN 31.6 pg (28.0-32.0); MEAN CORPUSCULAR HGB CONC 35.2 g/dL (32.0-36.0); MEAN CORPUSCULAR VOLUME 89.6 fL (83.0-99.0); MEAN PLATELET VOLUME 11.4 fL (9.4-12.3); MONOCYTES ABSOLUTE AUTO 0.57 K/uL (0.00-0.80); MONOCYTES PERCENT AUTO 4.6 % (0.0-8.0); NEUTROPHILS ABSOLUTE AUTO 9.12 K/uL (1.80-7.70); NEUTROPHILS PERCENT AUTO 73.2 % (41.0-71.0); PLATELET COUNT,PLT 435 K/uL (150-400); RED BLOOD CELL COUNT 4.31 M/uL (4.10-5.30); WHITE BLOOD CELL COUNT,WBC 12.46 K/uL (3.9-11.3)
[2023-06-16 22:46] LABS: A/G RATIO 0.8 (0.9-1.6); ALBUMIN 4.1 g/dL (3.4-5.0); BILIRUBIN TOTAL 0.5 mg/dL (0.2-1.0); CALCIUM 10.3 mg/dL (8.5-10.1); CREATININE 1.3 mg/dL (0.6-1.0); EST CRCL DRUG DOSING (CG) 41.93 mL/min; PROTEIN TOTAL,TP 9.1 g/dL (6.4-8.2)
[2023-06-16] MEDS: Metoclopramide 10 MG/2 ML SDV IVPUSH ONE (23:54)
[2023-06-16] MEDS: Morphine 4 MG/ML Syringe IVPUSH ONE (23:55)
== END 2023-06-17 01:36 | disposition home or self-care (01) ==
LOC: MW.ED 20:59
DX: R10.84 Generalized abdominal pain (principal); R11.2 Nausea with vomiting, unspecified; I10 Essential (primary) hypertension; Z79.899 Other long term (current) drug therapy; Z88.1 Allergy status to other antibiotic agents
CPT/HCPCS: 36415; 80053; 83690; 85025; 96361; 96374; 96375; 99284; J1885; J2270; J2405; J2765; J7030